=== PATIENT | male | born 1960 | race African-American/Black ===

== ENCOUNTER → 2016-09-02 | Outpatient (CLI) | payer OTHER ==
--- NOTE | 2016-09-02 10:16 | XR ---
EXAMINATION TYPE: XR knee 4V bilateral DATE OF EXAM: 09/02/2016 9:43 AM CLINICAL HISTORY: pain TECHNIQUE: Three views of the left knee are obtained. COMPARISON: None. FINDINGS: There is no acute fracture/dislocation. The tri-compartment joint spaces appear mildly na rrowed. Intercondylar spurring noted. The overlying soft tissue appears unremarkable. IMPRESSION: There is no acute fracture or dislocation ICD 10 NO FRACTURE, INITIAL EVALUATION EXAMINATION TYPE: XR knee 4V bilateral DATE OF EXAM: 09/02/2016 9:43 AM CLINICAL HISTORY: pain TECHNIQUE: Three views of the right knee are obtained. COMPARISON: None. FINDINGS: There is no acute fracture/dislocation. The tri-compartment joint spaces appear mildly na rrowed. Intercondylar spurring noted. The overlying soft tissue appears unremarkable. IMPRESSION: There is no acute fracture or dislocation.ICD 10 NO FRACTURE, INITIAL EVALUATION
== END ==
LOC: RADXRMAIN 09:21
PROVIDERS: ATTEND Psychiatry & Neurology Neurology
DX: M25.561 Pain in right knee (principal); M25.562 Pain in left knee

== ENCOUNTER → 2017-02-26 | Outpatient (CLI) | payer OTHER ==
[2017-02-26 11:39] LABS: Blood Urea Nitrogen 14 mg/dL (9-20); Non-African American GFR(MDRD) >60 (>60 ml/min/1.73 sqM)
--- NOTE | 2017-02-26 14:12 | MR ---
EXAMINATION TYPE: MR thoracic spine wo/w con DATE OF EXAM: 02/26/2017 COMPARISON: NONE HISTORY: Tsp pain per order. Mid back pain for years per patient. TECHNIQUE: Multiplanar, multisequence imaging of thoracic spine is performed without and with IV cont rast, patient is injected with 10 cc of gadolinium this for the study. FINDINGS: Spinal cord shows normal course, caliber, and signal as it courses the thoracic spine. Ve rtebral body heights and alignment are satisfactory. The disc space heights are maintained. There are multilevel posterior disc herniations effacing anterior thecal sac at the C2-C3-T5-T6 level on sagit kee images. There is most prominent posterior disc herniation effacing anterior thecal sac at T8-T9 l evel on sagittal image 7. Bone marrow signal intensity is preserved. There is mild multilevel anterio r spurring seen. No suspicious postcontrast enhancement is present. Note is made of additional more p rominent multilevel posterior disc herniations effacing anterior thecal sac in the cervical spine on the sagittal T2 counting sequence. Review of the axial images shows no additional significant spinal canal stenosis or neural foraminal narrowing at any thoracic level. Some artifact degradation is present axial and sagittal images. IMPRESSION: Multilevel degenerative changes in the thoracic spine most prominent at T8-T9 level as de tailed above.
== END ==
LOC: RADMRIMAIN 11:18
PROVIDERS: ATTEND Psychiatry & Neurology Neurology
DX: M47.814 Spondylosis without myelopathy or radiculopathy, thoracic region (principal)
CPT/HCPCS: 82565; 84520; 72157; 36415; A9581

== ENCOUNTER → 2017-02-27 | Outpatient (CLI) | payer OTHER ==
--- NOTE | 2017-02-27 10:00 | MR ---
EXAMINATION TYPE: MR lumbar spine wo con DATE OF EXAM: 02/27/2017 COMPARISON: NONE HISTORY: lumbago TECHNIQUE: T1 and T2 axial and sagittal images of the lumbar spine are submitted. FINDINGS: There is limited assessment of abnormal signal within the spinal cord. Artifact. At L1-2 there is no disc herniation or canal stenosis. No foraminal encroachment. At L2-3 there is no disc herniation or canal stenosis. No foraminal encroachment. At L3-4 there is no disc herniation or canal stenosis. No foraminal encroachment. There is facet arth ropathy. At L4-5 there is degenerative disc disease. There is moderate facet arthropathy mild broad-based disc bulging but no canal stenosis. Mild bilateral foraminal encroachment. At L5-S1 there is no disc herniation or canal stenosis. Mild hypertrophic change of the facets with m ild right-sided foraminal encroachment. IMPRESSION: 1. Degenerative disc disease with circumferential disc bulging L4-L5 but no canal stenosis. Advanced facet arthropathy results in bilateral foraminal encroachment greater on the right. 2. Facet arthropathy L5-S1 with right-sided foraminal encroachment.
== END | disposition home or self-care (01) ==
LOC: RADMRIMAIN 09:12
PROVIDERS: ATTEND Psychiatry & Neurology Neurology
DX: M51.36 Other intervertebral disc degeneration, lumbar region (principal); M51.26 Other intervertebral disc displacement, lumbar region; M46.07 Spinal enthesopathy, lumbosacral region; M54.2 Cervicalgia
CPT/HCPCS: 72148

== ENCOUNTER 2017-03-12 09:30 | Emergency (ER) | payer OTHER ==
[2017-03-12] MEDS ORDERED: ONDANSETRON 4 MG/2 ML VIAL IVP STA (09:45)
[2017-03-12] MEDS ORDERED: HYDROmorphone 1 MG/ML 1 ML SYRINGE IVP STA (09:45)
[2017-03-12] MEDS ORDERED: SODIUM CHLORIDE 0.9% 1,000 ML IV STA (09:45)
[2017-03-12] MEDS ORDERED: KETOROLAC 30 MG/ML 1 ML VIAL IVP STA (09:45)
--- NOTE | 2017-03-12 09:52 | ED ---
General Adult HPI - General Chief complaint: Abdominal Pain Stated complaint: urine retention, painful Time Seen by Provider: 03/12/17 09:39 Source: patient, RN notes reviewed Mode of arrival: wheelchair Limitations: no limitations - History of Present Illness Initial comments: 56-year-old male presents to the emergency department with a chief complaint of dysuria and right flank pain. Patient states that he has been feeling this way since this morning. Return. He he feels like he has to push to get out and then he'll get right flank pain. Patient denies any blood in the urine. Patient denies any fever chills any nausea vomiting. Patient states just this pain to the right flank it will not go away. Patient denies any history of this he denies any history of kidney stones or any family history of kidney stones. Patient states does have diabetes function is normally bed. Patient was concerned due to the symptoms so they thought that they should be evaluated. Patient denies any recent fever, chills, shortness of breath, chest pain, abdominal pain, nausea vomiting, numbness or tingling, hematuria, constipation or diarrhea, headaches or visual changes, or any other current symptoms. - Related Data Home Medications Medication Instructions Recorded Confirmed ALPRAZolam [Xanax] 0.5 mg PO Q8HR PRN 09/30/16 03/12/17 Atorvastatin [Lipitor] 40 mg PO DAILY 09/30/16 03/12/17 Insulin Glargine [Lantus] 2 - 3 unit SQ DAILY PRN 09/30/16 03/12/17 Beclomethasone Dipropionate [Qvar 2 puff INHALATION RT-BID 03/12/17 03/12/17 40 mcg] Ergocalciferol [Vitamin D2] 50,000 unit PO MACARIO 03/12/17 03/12/17 HYDROcodone/APAP 10-325MG [[place] 1 tab PO BID 03/12/17 03/12/17 10-325] Montelukast Sodium [Singulair] 10 mg PO DAILY 03/12/17 03/12/17 amLODIPine [Norvasc] 5 mg PO DAILY 03/12/17 03/12/17 metFORMIN HCL [Glucophage] 500 mg PO BID 03/12/17 03/12/17 Previous Rx's Medication Instructions Recorded Ciprofloxacin HCl [Cipro] 500 mg PO Q12HR #14 tablet 03/12/17 Hydrocodone/Acetaminophen [[place] 1 each PO Q6HR PRN #20 tab 03/12/17 5-325] Ketorolac [Toradol] 10 mg PO Q6HR #20 tab 03/12/17 Ondansetron Odt [Zofran ODT] 4 mg PO Q8HR PRN #20 tab 03/12/17 Tamsulosin [Flomax] 0.4 mg PO DAILY #5 cap 03/12/17 Allergies Allergy/AdvReac Type Severity Reaction Status Date / Time No Known Allergies Allergy Verified 03/12/17 09:52 Review of Systems ROS Statement: Those systems with pertinent positive or pertinent negative responses have been documented in the HPI. ROS Other: All systems not noted in ROS Statement are negative. Past Medical History Past Medical History: Chest Pain / Angina, CVA/TIA, GERD/Reflux, Hypertension, Myocardial Infarction (VT), Osteoarthritis (OA) Additional Past Medical History / Comment(s): occas. neck pain that radiates to rt side of head Last Myocardial Infarction Date:: unknown History of Any Multi-Drug Resistant Organisms: None Reported Additional Past Surgical History / Comment(s): skin graph from buttocks area to lt shoulder and lt hand Past Anesthesia/Blood Transfusion Reactions: No Reported Reaction Past Psychological History: Depression Smoking Status: Current every day smoker Past Alcohol Use History: None Reported Past Drug Use History: None Reported - Past Family History Mother Additional Family Medical History / Comment(s): hx of clots General Exam - General Exam Comments Initial Comments: General: The patient is awake and alert, in no distress, and does not appear acutely ill. Eye: Pupils are equal, round and reactive to light, extra-ocular movements are intact; there is normal conjunctiva bilaterally. No signs of icterus. Ears, nose, mouth and throat: There are moist mucous membranes. Neck: The neck is supple, there is no tenderness. Cardiovascular: There is a regular rate and rhythm. No murmur, rub or gallop is appreciated. Respiratory: Lungs are clear to auscultation, respirations are non-labored, breath sounds are equal. No wheezes, stridor, rales, or rhonchi. Gastrointestinal: Soft, non-distended, non-tender abdomen without masses or organomegaly noted. There is no rebound or guarding present. Right sided CVA tenderness. Bowel sounds are unremarkable. Back: There is no tenderness to palpation in the midline. There is no obvious deformity. No rashes noted. Musculoskeletal: Normal ROM, no tenderness, There is no pedal edema. There is no calf tenderness or swelling. Sensation intact. Pulses equal bilaterally 2+. Neurological: CN II-XII intact, There are no obvious motor or sensory deficits. Coordination appears grossly intact. Speech is normal. Skin: Skin is warm and dry and no rashes or lesions are noted. Psychiatric: Cooperative, appropriate mood & affect, normal judgment. Limitations: no limitations Course Vital Signs 03/12/17 09:35 Temperature 97.8 F Pulse Rate 75 Respiratory 18 Rate Blood Pressure 134/76 O2 Sat by Pulse 99 Oximetry Medical Decision Making - Medical Decision Making 56-year-old male presents to the emergency Department chief complaint of dysuria and right flank pain. At this time patient's lab work is reviewed. Patient's CAT scan is reviewed. Patient's symptoms are consistent with usual calculus at this time. We will start the patient on medication to treat for this as well as an antibiotic. We did discuss close follow-up with urology. At this time patient has no tenderness in the right upper quadrant. This time very low suspicious for gallbladder etiology. We did discuss return parameters with the patient for this however he does agree to follow-up. This time the patient will be discharged home. - Lab Data Result diagrams: 03/12/17 09:55 03/12/17 09:55 Lab Results 03/12/17 03/12/17 03/12/17 Range/Units 09:55 09:55 09:55 WBC 6.6 (3.8-10.6) k/uL RBC 4.78 (4.30-5.90) m/uL Hgb 14.8 (13.0-17.5) gm/dL Hct 45.8 (39.0-53.0) % MCV 95.8 (80.0-100.0) fL MCH 30.9 (25.0-35.0) pg MCHC 32.2 (31.0-37.0) g/dL RDW 14.6 (11.5-15.5) % Plt Count 261 (150-450) k/uL Neutrophils % 47 % Lymphocytes % 45 % Monocytes % 6 % Eosinophils % 0 % Basophils % 0 % Neutrophils # 3.2 (1.3-7.7) k/uL Lymphocytes # 3.0 (1.0-4.8) k/uL Monocytes # 0.4 (0-1.0) k/uL Eosinophils # 0.0 (0-0.7) k/uL Basophils # 0.0 (0-0.2) k/uL Sodium 139 (137-145) mmol/L Potassium 3.9 (3.5-5.1) mmol/L Chloride 106 (98-107) mmol/L Carbon Dioxide 23 (22-30) mmol/L Anion Gap 10 mmol/L BUN 15 (9-20) mg/dL Creatinine 0.97 (0.66-1.25) mg/dL Est GFR (MDRD) Af Amer >60 (>60 ml/min/1.73 sqM) Est GFR (MDRD) Non-Af >60 (>60 ml/min/1.73 sqM) Glucose 126 H (74-99) mg/dL Calcium 9.4 (8.4-10.2) mg/dL Total Bilirubin 0.5 (0.2-1.3) mg/dL AST 20 (17-59) U/L ALT 30 (21-72) U/L Alkaline Phosphatase 65 (38-126) U/L Total Protein 6.8 (6.3-8.2) g/dL Albumin 4.2 (3.5-5.0) g/dL Amylase 54 (30-110) U/L Lipase 96 (23-300) U/L Urine Color Colorless Urine Appearance Clear (Clear) Urine pH 5.0 (5.0-8.0) Ur Specific [place] 1.002 (1.001-1.035) Urine Protein Negative (Negative) Urine Glucose (UA) Negative (Negative) Urine Ketones Negative (Negative) Urine Blood Negative (Negative) Urine Nitrite Negative (Negative) Urine Bilirubin Negative (Negative) Urine Urobilinogen <2.0 (<2.0) mg/dL Ur Leukocyte Esterase Negative (Negative) - Radiology Data Radiology results: report reviewed, image reviewed Disposition Clinical Impression: Right flank pain Disposition: HOME SELF-CARE Condition: Stable Instructions: Kidney Stones (ED) Additional Instructions: Please use medication as discussed. Please follow up with family doctor if symptoms have not improved over the next two days. Please return to the emergency room if your symptoms increase or worsen or for any other concerns. Prescriptions: Ciprofloxacin HCl [Cipro] 500 mg PO Q12HR #14 tablet Hydrocodone/Acetaminophen [[place] 5-325] 1 each PO Q6HR PRN #20 tab PRN Reason: Pain Ketorolac [Toradol] 10 mg PO Q6HR #20 tab Ondansetron Odt [Zofran ODT] 4 mg PO Q8HR PRN #20 tab PRN Reason: Nausea Tamsulosin [Flomax] 0.4 mg PO DAILY #5 cap Referrals: Ruma Ortiz MD [Primary Care Provider] - 1-2 days Time of Disposition: 11:28
[2017-03-12 10:19] LABS: Appearance,Urine Clear (Clear); Bilirubin,Urine Negative (Negative); Glucose,Urine (UA) Negative (Negative); Ketones,Urine Negative (Negative); Leukocyte Esterase,Urine Negative (Negative); Nitrite,Urine Negative (Negative); Protein,Urine Negative (Negative); Specific Gravity,Urine 1.002 (1.001-1.035); UA Billing (MACRO vs. MICRO) CHEM; Urobilinogen,Urine <2.0 mg/dL (<2.0)
[2017-03-12 10:21] LABS: Basophils % (A) 0 %; CH 31.5; Eosinophils % (A) 0 %; HCT 45.8 % (39.0-53.0); HDW 2.19; HGB 14.8 gm/dL (13.0-17.5); Luc # (Auto) 0.09; Luc % (Auto) 1; Lymphocytes % (A) 45 %; MCH 30.9 pg (25.0-35.0); MCHC 32.2 g/dL (31.0-37.0); MCV 95.8 fL (80.0-100.0); Mean Platelet Volume 7.9; Monocytes # (A) 0.4 k/uL (0-1.0); Monocytes % (A) 6 %; Neutrophils # (A) 3.2 k/uL (1.3-7.7); Neutrophils % (A) 47 %; RBC 4.78 m/uL (4.30-5.90); RDW 14.6 % (11.5-15.5); WBC 6.6 k/uL (3.8-10.6); WBC (Perox) 6.45
[2017-03-12 10:30] LABS: ALT 30 U/L (21-72); AST 20 U/L (17-59); Alkaline Phosphatase 65 U/L (38-126); Amylase 54 U/L (30-110); Anion Gap 10 mmol/L; Blood Urea Nitrogen 15 mg/dL (9-20); Calcium 9.4 mg/dL (8.4-10.2); Carbon Dioxide 23 mmol/L (22-30); Chloride 106 mmol/L (98-107); Glucose 126 mg/dL (74-99); Non-African American GFR(MDRD) >60 (>60 ml/min/1.73 sqM); Potassium 3.9 mmol/L (3.5-5.1); Sodium 139 mmol/L (137-145); Total Bilirubin 0.5 mg/dL (0.2-1.3); Total Protein 6.8 g/dL (6.3-8.2)
--- NOTE | 2017-03-12 11:15 | CT ---
EXAMINATION TYPE: CT abdomen pelvis wo con DATE OF EXAM: 03/12/2017 COMPARISON: NONE HISTORY: 56-year-old male Rt flank pain with urine retention CT DLP: 754.5 mGycm. Automated exposure control for dose reduction was used. TECHNIQUE: Contiguous axial scanning of the abdomen and pelvis without IV contrast. Coronal and sagit kee reconstructions performed. FINDINGS: Heart is normal size without pericardial effusion. Lung bases clear without pleural effusion. Moderate-sized umbilical hernia with the abdominal wall defect measuring 3.1 cm wide. Tiny hiatal hernia. Lung bases clear without pleural effusion. Noncontrast appearance of the liver, adrenal glands, left kidney, spleen, and pancreas show no gross abnormality. The gallbladder is borderline hydropic measuring 4.0 cm wide. With attention to the right kidney, no renal calculi or hydronephrosis is identified. Findings are eq uivocal between a 3.5 cm phlebolith or distal third right ureteral calculus, axial image 99. No dilated small bowel, free fluid, or free air. No mesenteric or retroperitoneal lymphadenopathy. Normal appendix. No significant stool burden. Left colonic diverticulosis, greatest in the sigmoid colon. No pericolonic inflammatory change seen. Mild circumferential bladder wall thickening. Prostate gland measures 3.7 cm wide. Small fat-containi ng right inguinal hernia. No abnormal fluid collection in the pelvis or evidence of pelvic lymphadeno aury. Bones: Degenerative changes at the hips and SI joints as well as the lower lumbar spine. No osseous d estructive process. IMPRESSION: 1. Either a 3.5 mm distal third right ureteral calculus versus phlebolith. A ureteral calculus would be suggested if there is renal colic and hematuria. No significant hydronephrosis at this time. 2. Circumferential bladder wall thickening could represent chronic bladder wall hypertrophy or cysti tis. Clinically correlate. 3. Borderline distended gallbladder likely due to fasting state. If right upper quadrant pain or con cern for early acute cholecystitis, ultrasound can be considered. 4. Small hiatal hernia, small fatty umbilical hernia, small fat-containing right inguinal hernia, an d left hemicolonic diverticulosis.
[2017-03-12 11:44] VITALS: BP 137/65; PULSE 70; RESP 16; TEMP 98.1
== END 2017-03-12 11:45 | disposition home or self-care (01) ==
LOC: EC 09:30 → SUPCPDRO 09:30 → EC 11:45
DX: R10.9 Unspecified abdominal pain (principal); R30.0 Dysuria; I10 Essential (primary) hypertension; F17.200 Nicotine dependence, unspecified, uncomplicated; Z79.891 Long term (current) use of opiate analgesic; Z79.4 Long term (current) use of insulin; Z79.51 Long term (current) use of inhaled steroids; Z79.84 Long term (current) use of oral hypoglycemic drugs; Z79.899 Other long term (current) drug therapy
CPT/HCPCS: 99284 ×2; 96374 ×2; 96375 ×3; 96361 ×2; 51798; 36415; 80053; 82150; 83690; 85025; 81003; 87086; 74176; J2405; J1885; J1170

== ENCOUNTER → 2019-06-08 | Outpatient (CLI) | payer MEDICARE, OTHER ==
--- NOTE | 2019-06-08 19:44 | EST ---
EXERCISE STRESS AGE: 58 SEX: Male. HT: 65" WT: 220 PROTOCOL: Mariano STAGE: II DURATION OF EXERCISE: 6:00 HEART RATE REST: 82 BLOOD PRESSURE REST: 111/74 MAXIMUM HEART RATE ACHIEVED: 141 MAXIMUM BLOOD PRESSURE: 161/80 85% MPHR: 139 100% MPHR: 164 METS: 7.1 INDICATIONS: Chest pain. CLINICAL INFORMATION: Exercise stress test was performed. Patient was exercised for a total period of 6 minutes. Peak heart rate of 141 was achieved. Maximum blood pressure of 161/80 mmHg is noted. Resting EKG shows normal sinus rhythm with normal NC interval and QRS duration with J-point elevation suggestive of early repolarization noted. No ST-segment depression suggestive of ischemia is noted. The patient did not complain of any chest pain during the test. FINAL IMPRESSION: This exercise status is not suggestive of ischemia. Patient's exercise tolerance is average. No dysrhythmias are noted. MMODL / IJN: [id number] /
== END | disposition home or self-care (01) ==
LOC: RADNMMAIN 08:01
PROVIDERS: ATTEND Family Medicine
DX: R07.9 Chest pain, unspecified (principal)
CPT/HCPCS: 93017

== ENCOUNTER → 2019-06-15 | Outpatient (CLI) | payer MEDICARE, OTHER ==
--- NOTE | 2019-06-22 07:44 | P.PN ---
Progress Note - Text Progress Note Date: 06/22/19 This is a report on the 24-hour DCG Baseline EKG showed sinus rhythm. Patient remained in sinus rhythm throughout the recording with an average heart rate of 76 with a minimum of 47 and maximum of 129. Occasional APCs and PVCs are noted. Patient did not provide any dietary Final impression: #1. Sinus rhythm. #2. Occasional PVCs #3. Occasional APC #4. No diary
--- NOTE | 2019-06-23 16:49 | HM ---
This is a report on the 24-hour DCG Baseline EKG showed sinus rhythm. Patient remained in sinus rhythm throughout the recording with an average heart rate of 76 with a minimum of 47 and maximum of 129. Occasional APCs and PVCs are noted. Patient did not provide any dietary Final impression: #1. Sinus rhythm. #2. Occasional PVCs #3. Occasional APC #4. No diary MTDD
== END | disposition home or self-care (01) ==
LOC: RADECHMAIN 11:37
PROVIDERS: ATTEND Family Medicine
DX: I49.3 Ventricular premature depolarization (principal); I49.1 Atrial premature depolarization
CPT/HCPCS: 93225; 93226

== ENCOUNTER → 2020-06-08 | Outpatient (CLI) | payer MEDICARE, OTHER ==
--- NOTE | 2020-06-08 09:08 | CT ---
EXAMINATION TYPE: CT CervThoracic spine wo con DATE OF EXAM: 06/08/2020 COMPARISON: MRI thoracic spine February 26, 2017 HISTORY: Mass on cervical spine, pain down back CT DLP: 2980.90 mGycm. Automated Exposure Control for Dose Reduction was Utilized. TECHNIQUE: CT scan of the cervical and thoracic spine are obtained without contrast, axial images ar e obtained, sagittal and coronal reformatted images are also reviewed. FINDINGS: Cervical spine is visualized in its entirety from C1 through upper thoracic levels, demonst rates straightened alignment without evidence of acute fracture or dislocation. Prevertebral soft ti ssue appears within normal limits. The C1-C2 articulation is within normal limits on the coronal juan luis ges. Vertebral body heights are maintained. Mild to moderate disc space narrowing with moderate to se justina spurring C5-C6 and C6-C7 levels are present. Posterior spur disc complex interfacing anterior th ecal sac at these levels on sagittal images. Axial images show C2-C3 through C4-C5 level to appear within normal limits. There is mild to moderate left greater than right bilateral neural foraminal narrowing at C5-C6 and C6-C7 levels due to margin al spurring. Corresponding to history of areas posterior predominately fat density lesion just superficial to the posterior neck muscles has some strands of soft tissue density. Lesion measures roughly 6.1 cm transv ersely axial image 55, craniocaudal measures roughly 4.5 cm coronal image 87. Metallic BB noted super ior portion of lesion axial image 53. Thyroid gland is within normal limits. 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 If lesion is felt to continue to increase in size orthopedic oncology referral would b e advised. T-SPINE: Thoracic spine shows slight scoliotic curvature on coronal images. Alignment is satisfactory on sagit kee images. [id number] multilevel anterior and lateral spurring is present. Multilevel disc alex iccation. Small posterior disc herniations are demonstrated at multiple levels in the resident spine mildly effacing the anterior thecal sac. On axial images the visualized lungs are clear. There is coronary artery calcification in the RCA dis tribution. Visualized upper abdomen shows no suspicious abnormality. Impression: [id number] multilevel degenerative changes in thoracic spine redemonstrated without significant progression from 2017 MRI.
== END | disposition home or self-care (01) ==
LOC: RADCTMAIN 06:43
PROVIDERS: ATTEND Family Medicine
DX: M47.814 Spondylosis without myelopathy or radiculopathy, thoracic region (principal); M79.89 Other specified soft tissue disorders
CPT/HCPCS: 72125; 72128

== ENCOUNTER 2020-07-12 17:59 | Emergency (ER) | payer MEDICARE, OTHER ==
[2020-07-12 18:17] VITALS: BP 142/86; PULSE 115; RESP 18
[2020-07-12] MEDS ORDERED: SODIUM CHLORIDE 0.9% 1,000 ML IV STA (18:19)
[2020-07-12] MEDS ORDERED: ACETAMINOPHEN TAB 325 MG TAB PO STA (18:19)
[2020-07-12] MEDS ORDERED: diphenhydrAMINE 50 MG/ML 1 ML VIAL IVP STA (18:31)
[2020-07-12] MEDS ORDERED: methylPREDNISolone SOD SUCCI 125 MG/2 ML VIAL IV STA (18:31)
--- NOTE | 2020-07-12 18:34 | ED ---
General Adult HPI - General Chief complaint: Fever Stated complaint: Fever Source: patient, EMS, RN notes reviewed Mode of arrival: EMS Limitations: no limitations - History of Present Illness Initial comments: Patient is a 59-year-old male that comes to emergency department complaining of chills, fever. He noted that he just had an MRI with dye done about an hour prior to come emergency room. He was in no pain or discomfort he was worried because he was chilled and wasn't sure if it was from the dial an MRI. He noted that during MRI after they injected that the doctor know that he was not feeling too well said go home relax it should go away. Patient went home and noticed that his sugar was getting mostly well to get some food came back drinks orange juice. He noted that intelligibly sugars are low when he gets cold and he noted that this only happened one other time. Patient denied any other complaints or issues. He takes all his medications as prescribed by his primary care. He denied any chest pain shortness of breath headache nausea vomiting diarrhea constipation fatigue - Related Data Home Medications Medication Instructions Recorded Confirmed ALPRAZolam [Xanax] 0.5 mg PO Q8HR PRN 09/30/16 03/12/17 Atorvastatin [Lipitor] 40 mg PO DAILY 09/30/16 03/12/17 Insulin Glargine [Lantus] 2 - 3 unit SQ DAILY PRN 09/30/16 03/12/17 Beclomethasone Dipropionate [Qvar 2 puff INHALATION RT-BID 03/12/17 03/12/17 40 mcg] Ergocalciferol [Vitamin D2] 50,000 unit PO MACARIO 03/12/17 03/12/17 HYDROcodone/APAP 10-325MG [[place] 1 tab PO BID 03/12/17 03/12/17 10-325] Montelukast Sodium [Singulair] 10 mg PO DAILY 03/12/17 03/12/17 amLODIPine [Norvasc] 5 mg PO DAILY 03/12/17 03/12/17 metFORMIN HCL [Glucophage] 500 mg PO BID 03/12/17 03/12/17 Previous Rx's Medication Instructions Recorded Ciprofloxacin HCl [Cipro] 500 mg PO Q12HR #14 tablet 03/12/17 Hydrocodone/Acetaminophen [[place] 1 each PO Q6HR PRN #20 tab 03/12/17 5-325] Ketorolac [Toradol] 10 mg PO Q6HR #20 tab 03/12/17 Ondansetron Odt [Zofran ODT] 4 mg PO Q8HR PRN #20 tab 03/12/17 Tamsulosin [Flomax] 0.4 mg PO DAILY #5 cap 03/12/17 Allergies Allergy/AdvReac Type Severity Reaction Status Date / Time No Known Allergies Allergy Verified 03/12/17 09:52 Review of Systems ROS Statement: Those systems with pertinent positive or pertinent negative responses have been documented in the HPI. ROS Other: All systems not noted in ROS Statement are negative. Past Medical History Past Medical History: Chest Pain / Angina, CVA/TIA, GERD/Reflux, Hypertension, Myocardial Infarction ([place]), Osteoarthritis (OA) Additional Past Medical History / Comment(s): occas. neck pain that radiates to rt side of head Last Myocardial Infarction Date:: unknown History of Any Multi-Drug Resistant Organisms: None Reported Additional Past Surgical History / Comment(s): skin graph from buttocks area to lt shoulder and lt hand Past Anesthesia/Blood Transfusion Reactions: No Reported Reaction Past Psychological History: Depression Smoking Status: Current every day smoker Past Alcohol Use History: None Reported Past Drug Use History: None Reported - Past Family History Mother Additional Family Medical History / Comment(s): hx of clots General Exam Limitations: no limitations General appearance: alert, in no apparent distress Head exam: Present: atraumatic, normocephalic, normal inspection Eye exam: Present: normal appearance, PERRL, EOMI, scleral icterus. Absent: conjunctival injection, periorbital swelling ENT exam: Present: normal exam, mucous membranes moist Neck exam: Present: normal inspection. Absent: tenderness, meningismus, lymphadenopathy Respiratory exam: Present: normal lung sounds bilaterally. Absent: respiratory distress, wheezes, rales, rhonchi, stridor Cardiovascular Exam: Present: regular rate, normal rhythm, normal heart sounds. Absent: systolic murmur, diastolic murmur, rubs, gallop, clicks GI/Abdominal exam: Present: soft, normal bowel sounds. Absent: distended, tenderness, guarding, rebound, rigid Extremities exam: Present: normal inspection, full ROM, normal capillary refill. Absent: tenderness, pedal edema, joint swelling, calf tenderness Neurological exam: Present: alert, oriented X3, CN II-XII intact Psychiatric exam: Present: normal affect, normal mood Skin exam: Present: warm, dry, intact, normal color. Absent: rash Course Vital Signs 07/12/20 07/12/20 18:05 19:44 Temperature 102.1 F H 102 F H Pulse Rate 115 H Respiratory 18 Rate Blood Pressure 142/86 O2 Sat by Pulse 98 Oximetry Medical Decision Making - Medical Decision Making 59-year-old man complaining of chills status post MRI with contrast. Basic labs, chest x-ray, 1 L normal saline, Benadryl, Tylenol, Solu-Medrol ordered. Labs unremarkable. After attempts to give Toradol patient decided to sign out AMA - Lab Data Result diagrams: 07/12/20 18:40 07/12/20 18:40 Lab Results 07/12/20 07/12/20 07/12/20 Range/Units 18:40 18:40 18:40 WBC 7.3 (3.8-10.6) k/uL RBC 4.42 (4.30-5.90) m/uL Hgb 13.7 (13.0-17.5) gm/dL Hct 41.1 (39.0-53.0) % MCV 93.0 (80.0-100.0) fL MCH 31.1 (25.0-35.0) pg MCHC 33.5 (31.0-37.0) g/dL RDW 12.7 (11.5-15.5) % Plt Count 207 (150-450) k/uL MPV 7.6 Neutrophils % 88 % Lymphocytes % 8 % Monocytes % 1 % Eosinophils % 2 % Basophils % 0 % Neutrophils # 6.4 (1.3-7.7) k/uL Lymphocytes # 0.6 L (1.0-4.8) k/uL Monocytes # 0.1 (0-1.0) k/uL Eosinophils # 0.2 (0-0.7) k/uL Basophils # 0.0 (0-0.2) k/uL Sodium 138 (137-145) mmol/L Potassium 4.0 (3.5-5.1) mmol/L Chloride 104 (98-107) mmol/L Carbon Dioxide 28 (22-30) mmol/L Anion Gap 6 mmol/L BUN 19 (9-20) mg/dL Creatinine 0.87 (0.66-1.25) mg/dL Est GFR (CKD-EPI)AfAm >90 (>60 ml/min/1.73 sqM) Est GFR (CKD-EPI)NonAf >90 (>60 ml/min/1.73 sqM) Glucose 125 H (74-99) mg/dL POC Glucose (mg/dL) (75-99) mg/dL POC Glu [employer] Generator Repairer ID Calcium 9.0 (8.4-10.2) mg/dL Total Bilirubin 0.3 (0.2-1.3) mg/dL AST 24 (17-59) U/L ALT 16 (4-49) U/L Alkaline Phosphatase 57 (38-126) U/L Total Protein 6.4 (6.3-8.2) g/dL Albumin 4.0 (3.5-5.0) g/dL Urine Color Light Yellow Urine Appearance Clear (Clear) Urine pH 5.0 (5.0-8.0) Ur Specific [place] 1.015 (1.001-1.035) Urine Protein Negative (Negative) Urine Glucose (UA) Negative (Negative) Urine Ketones Negative (Negative) Urine Blood Negative (Negative) Urine Nitrite Negative (Negative) Urine Bilirubin Negative (Negative) Urine Urobilinogen <2.0 (<2.0) mg/dL Ur Leukocyte Esterase Negative (Negative) 07/12/20 Range/Units 20:01 WBC (3.8-10.6) k/uL RBC (4.30-5.90) m/uL Hgb (13.0-17.5) gm/dL Hct (39.0-53.0) % MCV (80.0-100.0) fL MCH (25.0-35.0) pg MCHC (31.0-37.0) g/dL RDW (11.5-15.5) % Plt Count (150-450) k/uL MPV Neutrophils % % Lymphocytes % % Monocytes % % Eosinophils % % Basophils % % Neutrophils # (1.3-7.7) k/uL Lymphocytes # (1.0-4.8) k/uL Monocytes # (0-1.0) k/uL Eosinophils # (0-0.7) k/uL Basophils # (0-0.2) k/uL Sodium (137-145) mmol/L Potassium (3.5-5.1) mmol/L Chloride (98-107) mmol/L Carbon Dioxide (22-30) mmol/L Anion Gap mmol/L BUN (9-20) mg/dL Creatinine (0.66-1.25) mg/dL Est GFR (CKD-EPI)AfAm (>60 ml/min/1.73 sqM) Est GFR (CKD-EPI)NonAf (>60 ml/min/1.73 sqM) Glucose (74-99) mg/dL POC Glucose (mg/dL) 160 H (75-99) mg/dL POC Glu [employer] Generator Repairer ID Nikki Huber Calcium (8.4-10.2) mg/dL Total Bilirubin (0.2-1.3) mg/dL AST (17-59) U/L ALT (4-49) U/L Alkaline Phosphatase (38-126) U/L Total Protein (6.3-8.2) g/dL Albumin (3.5-5.0) g/dL Urine Color Urine Appearance (Clear) Urine pH (5.0-8.0) Ur Specific [place] (1.001-1.035) Urine Protein (Negative) Urine Glucose (UA) (Negative) Urine Ketones (Negative) Urine Blood (Negative) Urine Nitrite (Negative) Urine Bilirubin (Negative) Urine Urobilinogen (<2.0) mg/dL Ur Leukocyte Esterase (Negative) - Radiology Data Radiology results: report reviewed, image reviewed Summer right lung findings as discussed. No acute findings. Disposition Clinical Impression: Fever Disposition: Left Against Medical Advice Is patient prescribed a controlled substance at d/c from ED?: No Referrals: Anam Heard MD [Primary Care Provider] - 1-2 days Time of Disposition: 20:07
[2020-07-12 18:49] LABS: Basophils % (A) 0 %; Eosinophils # (A) 0.2 k/uL (0-0.7); Eosinophils % (A) 2 %; HCT 41.1 % (39.0-53.0); HGB 13.7 gm/dL (13.0-17.5); Lymphocytes # (A) 0.6 k/uL (1.0-4.8); Lymphocytes % (A) 8 %; MCH 31.1 pg (25.0-35.0); MCHC 33.5 g/dL (31.0-37.0); Mean Platelet Volume 7.6; Monocytes # (A) 0.1 k/uL (0-1.0); Monocytes % (A) 1 %; Neutrophils # (A) 6.4 k/uL (1.3-7.7); Neutrophils % (A) 88 %; Platelet Count 207 k/uL (150-450); RBC 4.42 m/uL (4.30-5.90); RDW 12.7 % (11.5-15.5); WBC 7.3 k/uL (3.8-10.6)
[2020-07-12 18:53] LABS: Appearance,Urine Clear (Clear); Bilirubin,Urine Negative (Negative); Blood,Urine Negative (Negative); Color,Urine Light Yellow; Glucose,Urine (UA) Negative (Negative); Ketones,Urine Negative (Negative); Leukocyte Esterase,Urine Negative (Negative); Nitrite,Urine Negative (Negative); Protein,Urine Negative (Negative); Specific Gravity,Urine 1.015 (1.001-1.035); Urobilinogen,Urine <2.0 mg/dL (<2.0)
[2020-07-12 18:58] LABS: ALT 16 U/L (4-49); AST 24 U/L (17-59); African American GFR (CKD) >90 (>60 ml/min/1.73 sqM); Alkaline Phosphatase 57 U/L (38-126); Anion Gap 6 mmol/L; Blood Urea Nitrogen 19 mg/dL (9-20); Carbon Dioxide 28 mmol/L (22-30); Chloride 104 mmol/L (98-107); Glucose 125 mg/dL (74-99); Non-African American GFR(CKD) >90 (>60 ml/min/1.73 sqM); Sodium 138 mmol/L (137-145); Total Bilirubin 0.3 mg/dL (0.2-1.3); Total Protein 6.4 g/dL (6.3-8.2)
--- NOTE | 2020-07-12 19:13 | XR ---
EXAMINATION: XR chest 1V portable DATE AND TIME: 07/12/2020 6:56 PM CLINICAL INDICATION: PHH; Fever TECHNIQUE: AP upright portable COMPARISON: None FINDINGS: The hemidiaphragms are elevated to a mild degree, consistent with relatively low lung infla tion at the moment of x-ray exposure. This crowds the lower pulmonary vasculature and can lead to rad iographic false positives. In the right infrahilar position is a 2 cm zone of subtle increased ill-de fined opacity, too subtle to diagnose bronchopneumonia radiographically. However, this finding can co rrelate with a clinical diagnosis of early developing bronchopneumonia, with the differential diagnos is including changes related to the elevated hemidiaphragms. The lungs are otherwise bilaterally clear and well expanded. The pleural spaces are negative. The cardiac silhouette is not enlarged. The remainder of the mediastinal silhouette is unremarkable. The skeletal structures and soft tissues are negative for acute findings. IMPRESSION: Subtle right lung finding as discussed.
[2020-07-12] MEDS ORDERED: KETOROLAC 15 MG/ML 1 ML VIAL IVP STA (19:38)
[2020-07-12 19:48] VITALS: TEMP 102
[2020-07-12 20:04] LABS: Glucose,Whole Blood 160 mg/dL (75-99)
== END 2020-07-12 20:16 | disposition left against medical advice (07) ==
LOC: EC 17:59
DX: R50.9 Fever, unspecified (principal); F17.200 Nicotine dependence, unspecified, uncomplicated; I25.2 Old myocardial infarction; F32.9 Major depressive disorder, single episode, unspecified; I10 Essential (primary) hypertension; M19.90 Unspecified osteoarthritis, unspecified site; Z79.899 Other long term (current) drug therapy; Z86.73 Personal history of transient ischemic attack (TIA), and cerebral infarction without residual deficits
CPT/HCPCS: 96374 ×2; 96375 ×3; 96361 ×3; 99284 ×2; 36415; 80053; 85025; 81003; 71045; 72156; J1200; J2930; J1885; A9585

== ENCOUNTER → 2020-07-12 | Outpatient (CLI) | payer MEDICARE, OTHER ==
--- NOTE | 2020-07-12 23:53 | MR ---
EXAMINATION TYPE: MR cervical spine wo/w con DATE OF EXAM: 07/12/2020 COMPARISON: None HISTORY: Neck Pain, pain into left Arm. Ct showed possible lipoma in posterior neck area. CONTRAST: Standard multiplanar, multisequence MRI departmental protocol utilizing 10 mL intravenous Gadavist ga dolinium contrast. Have normal alignment. There is disc space narrowing at C5-6 and C6-7. There is a linear area of incr eased signal on the T2 images within the cervical cord consistent with a mild syrinx. This measures 1 to 2 mm in diameter. This extends from the level of C3-C6. There are small posterior disc bulges at C5-6 and C6-7. There is minimal disc bulge at C4-5. There is developmentally adequate spinal canal. T he canal measures 9 mm at the narrowest point. The brainstem is intact. I see no bony destructive pro cess. Contrast images show no pathologic enhancement. There is large amount of fatty tissue posteriorly in the upper cervical spine consistent with obesity or lipoma. Fat tissue measures up to 4.3 cm in thick ness. IMPRESSION: Mild spondylotic changes. No spinal stenosis. No fracture. There is a mild syrinx of the cervical spinal cord as above. No underlying mass seen. Large amount of fatty tissue posteriorly that could relate to lipoma or obesity.
== END | disposition home or self-care (01) ==
LOC: RADMRIMAIN 13:35
PROVIDERS: ATTEND Surgery Surgical Oncology
DX: G95.0 Syringomyelia and syringobulbia (principal); R93.7 Abnormal findings on diagnostic imaging of other parts of musculoskeletal system
CPT/HCPCS: 72156; A9585

== ENCOUNTER 2020-07-19 07:27 | Day surgery (SDC) | payer MEDICARE, OTHER ==
[2020-07-16 14:25] VITALS: BMI 36.6
[~2020-07-19 07:27] MED LIST: LACTATED RINGERS 1,000 ML IV SCH; LIDOCAINE 1% (10MG/ML) FOR IV START INTRADERMA PRN
[2020-07-19 07:55] VITALS: RESP 16; TEMP 99.2
[2020-07-19 08:10] LABS: Glucose,Whole Blood 122 mg/dL (75-99)
[2020-07-19] MEDS ORDERED: PROPOFOL 10 MG/ML 20 ML VIAL IV ONE (08:43)
[2020-07-19] MEDS ORDERED: LIDOCAINE 1% INJ 10MG/ML (20 ML MDV) ONE (08:43)
--- NOTE | 2020-07-19 08:55 | P.GSHP ---
History of Present Illness H&P Date: 07/19/20 CHIEF COMPLAINT: Colon screen HISTORY OF PRESENT ILLNESS: The patient is a 59-year-old male who presents for colon screen. Lower endoscopy was offered for further evaluation and management. PAST MEDICAL HISTORY: Please see list. PAST SURGICAL HISTORY: Please see list. MEDICATIONS: Please see list. ALLERGIES: Please see list. SOCIAL HISTORY: No illicit drug use FAMILY HISTORY: No reports of Crohn disease or ulcerative colitis. REVIEW OF ORGAN SYSTEMS: CONSTITUTIONAL: No reports of fevers or chills. PHYSICAL EXAM: VITAL SIGNS: Stable GENERAL: Well-developed pleasant in no acute distress. HEENT: No scleral icterus. Extraocular movements grossly intact. Moist buccal mucosa. NECK: Supple without lymphadenopathy. CHEST: Unlabored respirations. Equal bilateral excursions. CARDIOVASCULAR: Regular rate and rhythm. Distal 2+ pulses. ABDOMEN: Soft, nontender, nondistended. MUSCULOSKELETAL: No clubbing, cyanosis, or edema. ASSESSMENT: 1. Colon screen. PLAN: 1. Recommend proceeding with a lower endoscopy Past Medical History Past Medical History: Chest Pain / Angina, CVA/TIA, Diabetes Mellitus, GERD/Reflux, Hypertension, Myocardial Infarction ([place]), Osteoarthritis ([place]), Sleep Apnea/CPAP/BIPAP Additional Past Medical History / Comment(s): occas. neck pain that radiates to rt side of head. TIA, hx polyps, sleep apnea Last Myocardial Infarction Date:: unknown History of Any Multi-Drug Resistant Organisms: None Reported Additional Past Surgical History / Comment(s): skin graph from buttocks area to lt shoulder and lt hand. cataract surgery Past Anesthesia/Blood Transfusion Reactions: No Reported Reaction Smoking Status: Current every day smoker - Past Family History Mother Additional Family Medical History / Comment(s): hx of clots Medications and Allergies Home Medications Medication Instructions Recorded Confirmed Type Atorvastatin [Lipitor] 40 mg PO DAILY 09/30/16 07/19/20 History Ergocalciferol [Vitamin D2] 50,000 unit PO SA 03/12/17 07/19/20 History amLODIPine [Norvasc] 10 mg PO DAILY 03/12/17 07/19/20 History metFORMIN HCL [Glucophage] 1,000 mg PO BID 03/12/17 07/19/20 History Aspirin [Adult Low Dose Aspirin EC] 81 mg PO DAILY 07/16/20 07/19/20 History Famotidine [Pepcid] 20 mg PO DAILY 07/16/20 07/19/20 History HYDROcodone/APAP 10-325MG [[place] 1 tab PO Q6HR 07/16/20 07/19/20 History 10-325] Allergies Allergy/AdvReac Type Severity Reaction Status Date / Time iv contrast dye Allergy chills,high Uncoded 07/19/20 07:52 fever Surgical - Exam Vital Signs Temp Pulse Resp BP Pulse Ox 99.2 F 90 16 135/80 98 07/19/20 07:49 07/19/20 07:49 07/19/20 07:49 07/19/20 07:49 07/19/20 07:49 Results - Labs Abnormal Lab Results - Last 24 Hours (Table) 07/19/20 Range/Units 08:04 POC Glucose (mg/dL) 122 H (75-99) mg/dL
--- NOTE | 2020-07-19 09:18 | P.PCN ---
Date of Procedure: 07/19/20 Description of Procedure: PREOPERATIVE DIAGNOSIS: Colonoscopy screening. History of colon polyps POSTOPERATIVE DIAGNOSIS: Colonoscopy screening. Diverticulosis, scattered. History of colon polyps OPERATION: Colonoscopy to the cecum, ileocecal valve and appendiceal orifice. SURGEON: Teagan Engle MD. ANESTHESIA: MAC. INDICATIONS: The patient is a 59-year-old female who presents for colonoscopy screening. Last colonoscopy over 5 years ago. Benefits and risks were described and informed consent was obtained. DESCRIPTION OF PROCEDURE: The patient had undergone Suprep. The patient had been brought into the operating room and laid in the left lateral decubitus position. After adequate intravenous sedation, the rectum was examined with 2% lidocaine jelly. No external hemorrhoids were encountered. The rectal tone was within normal limits. No lesions were palpated in the rectal vault. An Olympus colonoscope was advanced until the cecum, ileocecal valve and appendiceal orifice were clearly viewed. The prep was good. Scattered sigmoid diverticulosis was encountered. No colonic polyps were found. Focal colitis was found along the sigmoid colon. Retroflexion of the scope demonstrated grade 1 internal hemorrhoids without active bleeding or inflammation. The colon was desufflated. The patient had tolerated the procedure well. Withdrawal time was over 6 minutes. FINDINGS: Aronchick preparation quality scale 2 (1-5) Internal hemorrhoids, grade 1 No external prolapsed hemorrhoids. No arteriovenous malformations. No adenomatous polyps. Sigmoid diverticulosis Focal colitis very mild along sigmoid RECOMMENDATIONS: Lower endoscopy in 5 years, 2025 Plan - Discharge Summary Discharge Rx Participant: No New Discharge Prescriptions: Continue Atorvastatin [Lipitor] 40 mg PO DAILY amLODIPine [Norvasc] 10 mg PO DAILY metFORMIN HCL [Glucophage] 1,000 mg PO BID Ergocalciferol [Vitamin D2 (DRISDOL)] 50,000 unit PO SA Famotidine [Pepcid] 20 mg PO DAILY HYDROcodone/APAP 10-325MG [[place] 10-325] 1 tab PO Q6HR Aspirin [Adult Low Dose Aspirin EC] 81 mg PO DAILY Discharge Medication List Atorvastatin [Lipitor] 40 mg PO DAILY 09/30/16 [History] Ergocalciferol [Vitamin D2 (DRISDOL)] 50,000 unit PO SA 03/12/17 [History] amLODIPine [Norvasc] 10 mg PO DAILY 03/12/17 [History] metFORMIN HCL [Glucophage] 1,000 mg PO BID 03/12/17 [History] Aspirin [Adult Low Dose Aspirin EC] 81 mg PO DAILY 07/16/20 [History] Famotidine [Pepcid] 20 mg PO DAILY 07/16/20 [History] HYDROcodone/APAP 10-325MG [[place] 10-325] 1 tab PO Q6HR 07/16/20 [History] Follow up Appointment(s)/Referral(s): Teagan Engle MD [STAFF PHYSICIAN] - As Needed Patient Instructions/Handouts: Diverticulosis Diet (GEN), Diverticulosis (DC) Activity/Diet/Wound Care/Special Instructions: Repeat colonoscopy 5 years, 2025 Discharge Disposition: HOME SELF-CARE
[2020-07-19 09:36] VITALS: BP 126/81; PULSE 87
== END 2020-07-19 09:52 | disposition home or self-care (01) ==
LOC: ORWHC2ENDO 07:27
PROVIDERS: ATTEND Surgery Plastic and Reconstructive Surgery
DX: Z12.11 Encounter for screening for malignant neoplasm of colon (principal); K57.30 Diverticulosis of large intestine without perforation or abscess without bleeding; K64.0 First degree hemorrhoids; K52.9 Noninfective gastroenteritis and colitis, unspecified; Z86.010 Personal history of colon polyps; Z86.73 Personal history of transient ischemic attack (TIA), and cerebral infarction without residual deficits; E11.9 Type 2 diabetes mellitus without complications; K21.9 Gastro-esophageal reflux disease without esophagitis; I10 Essential (primary) hypertension; I25.2 Old myocardial infarction; M19.90 Unspecified osteoarthritis, unspecified site; G47.30 Sleep apnea, unspecified; Z99.89 Dependence on other enabling machines and devices; M54.2 Cervicalgia; Z82.49 Family history of ischemic heart disease and other diseases of the circulatory system; Z79.84 Long term (current) use of oral hypoglycemic drugs; Z79.82 Long term (current) use of aspirin; Z79.891 Long term (current) use of opiate analgesic; Z91.041 Radiographic dye allergy status; F17.200 Nicotine dependence, unspecified, uncomplicated; F32.9 Major depressive disorder, single episode, unspecified
CPT/HCPCS: G0105; J2001; J2704; 45378

== ENCOUNTER → 2021-01-07 | Outpatient (CLI) | payer MEDICARE, OTHER ==
--- NOTE | 2021-01-07 10:21 | XR ---
EXAMINATION TYPE: XR shoulder complete RT DATE OF EXAM: 01/07/2021 CLINICAL HISTORY: pain TECHNIQUE: Three views of the right shoulder are obtained. COMPARISON: None FINDINGS: There is elevated distal clavicle relative to the chromium with widening of the cortical cl avicular space findings are compatible with a type III AC joint separation. Tiny ossific density richar cent to the acromion may reflect a small avulsion fracture. Glenohumeral joint is intact. Right-sided ribs are within normal limits. IMPRESSION: 1. Type III AC joint separation on the right.
== END | disposition home or self-care (01) ==
LOC: RADXRMAIN 09:25
PROVIDERS: ATTEND Nurse Practitioner
DX: S43.101A Unspecified dislocation of right acromioclavicular joint, initial encounter (principal)

== ENCOUNTER → 2021-02-18 | Outpatient (CLI) | payer MEDICARE, OTHER ==
--- NOTE | 2021-02-19 03:58 | MR ---
EXAMINATION TYPE: MR shoulder RT wo con DATE OF EXAM: 02/18/2021 COMPARISON: None HISTORY: Right shoulder pain due to fall on shoulder 9 months ago, palpable lump top of shoulder, gera nful raising arm over head. Multiplanar multiecho imaging of the right shoulder without contrast. There is deformity at the AC joint with widening of the joint space and fluid. There is hypertrophic spurring. This is consistent with old ligamentous tear. There is some malalignment of the joint. Ther e is no significant subacromial impingement. The supraspinatus tendon appears intact. There is no ret raction. Biceps tendon is intact. The subscapularis tendon is intact. Glenoid dipika appear intact. There is 8mm focus of increased signal in the humeral head and greater tuberosity consistent with deg enerative cyst formation. IMPRESSION: No evidence of rotator cuff tear. There is evidence of ligamentous tear with malalignment of the AC j oint. AC joint separation 1.5 cm
== END | disposition home or self-care (01) ==
LOC: RADMRIMAIN 16:11
PROVIDERS: ATTEND Family Medicine
DX: S43.101A Unspecified dislocation of right acromioclavicular joint, initial encounter (principal); S43.51XA Sprain of right acromioclavicular joint, initial encounter

== ENCOUNTER → 2021-06-06 | Outpatient (CLI) | payer MEDICARE, OTHER ==
--- NOTE | 2021-06-06 12:58 | XR ---
EXAMINATION TYPE: XR knee complete bilateral DATE OF EXAM: 06/06/2021 CLINICAL HISTORY: Pain. TECHNIQUE: Three views of the bilateral knees are obtained. COMPARISON: Prior bilateral knee x-rays September 02, 2016. FINDINGS: There is no acute fracture/dislocation evident in either knee. Mild to moderate tricompart ment joint space loss and spurring is redemonstrated with findings more prominent in right knee versu s left knee again seen. No significant change or progression from 2017 study. Mild posterior arterial vascular calcification bilaterally is redemonstrated and slightly more prominent bilaterally from study. IMPRESSION: As above.
== END | disposition home or self-care (01) ==
LOC: RADXRMAIN 10:31
PROVIDERS: ATTEND Family Medicine
DX: M25.862 Other specified joint disorders, left knee (principal); M25.861 Other specified joint disorders, right knee

== ENCOUNTER → 2021-06-19 | Outpatient (CLI) | payer MEDICARE, OTHER ==
--- NOTE | 2021-06-20 06:37 | MR ---
EXAMINATION TYPE: MR knee RT wo con DATE OF EXAM: 06/19/2021 COMPARISON: None HISTORY: Rt knee pain, internal derangement Multiplanar multiecho imaging of the right knee without contrast. There is spurring of the femoral and tibial condyles. The collateral ligaments appear intact. There i s mild knee joint effusion. The anterior and posterior cruciate ligaments appear intact. There is jose e degenerative thinning of the posterior horn medial meniscus. The lateral meniscus shows increased s ignal in the posterior horn at the free margin. The anterior horn lateral meniscus appears fairly nor mal. There is no evidence of a fracture. There is no evidence of focal bone destruction. IMPRESSION: Osteoarthritic hypertrophic changes. Small joint effusion. There is degenerative thinning and intrasu bstance tears of the posterior horn of the medial meniscus. There is a large horizontal and vertical tear of the posterior horn lateral meniscus. No evidence of ligamentous tear.
== END | disposition home or self-care (01) ==
LOC: RADMRIMAIN 06:31
PROVIDERS: ATTEND Family Medicine
DX: M17.11 Unilateral primary osteoarthritis, right knee (principal); M25.461 Effusion, right knee; M23.251 Derangement of posterior horn of lateral meniscus due to old tear or injury, right knee; M23.221 Derangement of posterior horn of medial meniscus due to old tear or injury, right knee

== ENCOUNTER → 2022-02-14 | Outpatient (CLI) | payer MEDICARE, OTHER ==
--- NOTE | 2022-02-15 08:16 | MR ---
EXAMINATION TYPE: MR knee RT wo con DATE OF EXAM: 02/14/2022 COMPARISON: HISTORY: Right inner knee pain, pain behind knee, and painful kneecap. History of surgery. TECHNIQUE: Multiplanar, multisequence imaging of the knee is performed without IV contrast. FINDINGS: MEDIAL MENISCUS: There is diminutive posterior horn medial meniscus which may be from prior meniscect guerrero. Correlate clinically. Anterior horn is intact. LATERAL MENISCUS: Myxoid degeneration posterior horn lateral meniscus. Anterior horn is intact. No di screte tear is appreciated with certainty. CRUCIATE LIGAMENTS: There is increased signal within the ACL which could reflect strain. See definite evidence for tear. PCL is intact. COLLATERAL LIGAMENTS: The medial collateral ligament a nd lateral collateral ligament complex are intact and unremarkable. EXTENSOR MECHANISM: Visualized quadriceps and patellar tendons are intact. EFFUSION: No significant suprapatellar joint effusion. POPLITEAL CYST: No popliteal/murillo cyst. TRICOMPARTMENT SPACES: Moderate degenerative narrowing of patellofemoral joint space and medial tibio femoral joint space. Subchondral cyst formation. CARTILAGE: Cartilaginous thinning noted without evidence for focal defect. BONE MARROW SIGNAL: No focal abnormal marrow signal is appreciated. OTHER: No additional significant abnormality is appreciated. IMPRESSION: 1. Diminutive posterior horn medial meniscus reflect meniscectomy change. Correlate clinically. 2. Myxoid degeneration posterior horn lateral meniscus without definite tear seen at this time. 3. Increased signal within the ACL may reflect ACL strain. 4. Degenerative changes of osteoarthritis.
== END | disposition home or self-care (01) ==
LOC: RADMRIMAIN 21:00
PROVIDERS: ATTEND Orthopaedic Surgery
DX: M17.11 Unilateral primary osteoarthritis, right knee (principal)

== ENCOUNTER → 2022-10-08 | Outpatient (CLI) | payer MEDICARE, OTHER ==
--- NOTE | 2022-10-08 10:05 | XR ---
EXAMINATION TYPE: XR chest 2V DATE OF EXAM: 10/08/2022 9:59 AM COMPARISON: Chest radiographs from 07/12/2020 TECHNIQUE: XR chest 2V Frontal and lateral views of the chest. CLINICAL INDICATION:Male, 62 years old with history of J44.9 COPD; FINDINGS: Lungs/Pleura: There is no evidence of pleural effusion, focal consolidation, or pneumothorax. Pulmonary vascularity: Unremarkable. Heart/mediastinum: Cardiomediastinal silhouette is unremarkable. Musculoskeletal: No acute osseous pathology. Mild degenerative changes of the thoracic spine. IMPRESSION: No acute cardiopulmonary disease/process.
== END | disposition home or self-care (01) ==
LOC: RADXRMAIN 09:48
PROVIDERS: ATTEND Family Medicine
DX: J44.9 Chronic obstructive pulmonary disease, unspecified (principal)
CPT/HCPCS: 71046